=== PATIENT | male | born 1995 | race Caucasian/White ===

== ENCOUNTER 2016-11-12 09:21 | Emergency (ER) | payer OTHER ==
[~2016-11-12] VITALS: Ht 193 cm; Wt 82.0 kg
[~2016-11-12 09:21] MED LIST: MELATAB2 PO
[2016-11-12 09:25] VITALS: TEMP 36.6; Ht 193 cm; Wt 82.0 kg
[2016-11-12 09:35] VITALS: O2SAT 99
[2016-11-12] MEDS ORDERED: SODIUM CHLORIDE 0.9% 1000ML 1,000 ML IV STA (09:51)
[2016-11-12] MEDS ORDERED: LORAZEPAM 1 MG TAB SL STA (09:51)
[2016-11-12 10:03] LABS: BASO % 0.8 %; BASO ABS # 0.04 K/uL (0-0.2); COMPLETE YES; EOS % 1.3 %; HEMATOCRIT 45.2 % (42-52); IG% 0.2 %; LYMPH % 34.9 %; LYMPH ABS # 1.67 K/uL (1.2-3.4); MEAN CORPUSCULAR HEMOGLOBIN 30.1 pg (25-34); MEAN CORPUSCULAR HGB CONC 35.4 g/dl (32-36); MEAN PLATELET VOLUME 10.4 fL (7.4-10.4); MONO % 10.3 %; NEUT % 52.5 %; PLATELET COUNT 198 K/uL (130-400); RED BLOOD COUNT 5.32 M/uL (4.7-6.1); WHITE BLOOD COUNT 4.78 K/uL (4.8-10.8)
[2016-11-12 10:22] LABS: BUN/CREATININE RATIO 16.8 (10-20); CALCIUM 9.6 mg/dl (8.5-10.1); CREATININE 0.98 mg/dl (0.60-1.40); POTASSIUM 3.7 mmol/L (3.5-5.1)
[2016-11-12 10:28] LABS: CKMB/CK RATIO 0.7 (0-3.0)
--- NOTE | 2016-11-12 10:34 | DIAGNOSTIC IMAGING REPORT ---
TWO VIEW CHEST CLINICAL HISTORY: Atypical chest pain. FINDINGS: PA and lateral chest radiographs are obtained. No prior studies are available for comparison at the time of dictation. The cardiomediastinal silhouette is unremarkable. The lungs and pleural spaces are clear. There is no pneumothorax. The bony thorax appears intact. IMPRESSION: No active disease in the chest. Electronically signed by: Saurabh Terrell M.D. 11/12/2016 10:33 AM Dictated Date/Time: 11/12/2016 10:32 AM
[2016-11-12] MEDS ORDERED: ALUMINUM/MAGNESIUM SUSP 30 ML UDC PO STA (12:58)
[2016-11-12] MEDS ORDERED: LIDOCAINE HCL 2% VISC SOLN 20 ML UDC PO STA (12:58)
--- NOTE | 2016-11-12 13:09 | DIAGNOSTIC IMAGING REPORT ---
Right upper quadrant ultrasound GALLBLADDER-ABD LIMITED CLINICAL HISTORY: lower chest pain, SOB, Elevated bilirubin pain. Nausea. TECHNIQUE: Ultrasound COMPARISON STUDY: None FINDINGS: Normal liver. Gallbladder is normal. Gallbladder wall measures 2 mm. There is no abnormal pericholecystic fluid. Common bile that measures 3 mm. Pancreas and right kidney are unremarkable. IMPRESSION: Normal study Electronically signed by: Remy Shook M.D. 11/12/2016 1:07 PM Dictated Date/Time: 11/12/2016 1:06 PM
[2016-11-12 13:51] VITALS: BP 126/71; PULSE 66; O2SAT 99
--- NOTE | 2016-11-14 21:41 | EMERGENCY ROOM VISIT NOTE ---
ED Visit Note First contact with patient: 09:30 Chief Complaint: Trouble breathing and chest pain. History of Present Illness: Mr. Sanchez is a 21 year-old white male who ambulates into the ED complaining of shortness of breath and chest discomfort. Patient was referred to the ED by a local urgent care center for further evaluation and care. Historically patient reports no significant cardiac or pulmonary histories. Patient reports approximately 24 hours ago he awoke from sleep and felt short of breath. He reports since that time when he is walking or lying down he has increased short of breath. He has not identified any alleviating factors related to his shortness of breath. He has not taken any medications or therapies for his shortness of breath prior to arrival at the hospital. Associated with his shortness of breath he also reports he has some mild discomfort over the lower sternal area. He describes this as an achy sensation. He rates his discomfort 3/10. Pain is nonradiating. His pain worsens with palpation and increasing shortness of breath. He has not identified any alleviating factors related to this symptom. He has not taken any medications for this symptoms prior to arrival at the hospital. He does report on Saturday night he was drinking heavily but denies any trauma at that time. Patient denies fevers, chills, sweats, skin eruptions, skin color changes, upper respiratory tract symptoms, wheezing, cough, dependent edema, previous clots, claudication, cramping, recent surgery/inactivity/extended travel, abdominal pain, nausea, vomiting, diarrhea, constipation, rectal bleeding, black /tarry stools, urinary symptoms, back/flank pain. Review of Systems: As noted above in history of present illness. All body systems were reviewed and found to be negative as noted above. Past Medical History: Unspecified knee surgery. Current Medications: Patient denies. Allergies to Medications: Patient denies. Social History: Patient is University student; he feels safe in his home environment; he denies tobacco use and admits to alcohol use. Physical Examination: Vital Signs: Date Time Temp Pulse Resp B/P Pulse Ox O2 Delivery O2 Flow Rate FiO2 11/12/16 13:51 66 16 126/71 99 11/12/16 13:15 71 11/12/16 12:19 72 16 115/61 100 Room Air 11/12/16 11:07 71 16 127/77 99 Room Air 11/12/16 09:36 86 11/12/16 09:35 99 Room Air 11/12/16 09:25 36.6 81 18 138/79 98 Room Air GENERAL: 21-year-old male in mild distress due to symptoms, nontoxic-appearing, afebrile and hemodynamically stable. NEUROLOGICAL: Awake, alert and oriented to person, place and time. Answering questions appropriately and following commands. Normal gait. Good hand eye coordination. Patient does appear moderately anxious as observed by facial reactions and body language. SKIN: Warm, dry and pink. No soft tissue eruptions or trauma noted. HEENT: Atraumatic and normocephalic. PERRLA. Sclera white and conjunctiva pink. Oral cavity moist and pink. Pharynx is nonerythematous or edematous. Speech normal. No lymphadenopathy. Trachea midline. No jugular venous distention. No carotid bruits. BACK: No tenderness over the bony spine. No CVA tenderness. THORAX: Lungs sounds are clear to auscultation and equal bilaterally with symmetrical chest wall. No wheezing, rales or rhonchi. No crepitus, tenderness , subcutaneous air or deformities noted. HEART: Regular rate and rhythm. No gallops, rubs or murmurs are appreciated. No lifts, heaves or thrills. PMI is not displaced. ABDOMEN: Flat and soft with moderate tenderness in the epigastric area. Positive bowel sounds in all quadrants. No guarding, rigidity or organomegaly. EXTREMITIES: Moves all extremities well on command and with purpose. All distal neurovascular statuses are intact and equal bilaterally. No dependent edema or calf tenderness/cords. ED Course: Patient is assessed as noted above. Old laboratory tests were reviewed from outside sources and showed: January 2015: elevated bilirubin of 1.5, AST of 51, ALT of 65, absolute lymphocytes 4852 and a positive Darleen-Casiano IgM. Laboratory Testing: Test 11/12/16 09:40 11/12/16 10:03 Range/Units White Blood Count 4.78 4.8-10.8 K/uL Red Blood Count 5.32 4.7-6.1 M/uL Hemoglobin 16.0 14.0-18.0 g/dL Hematocrit 45.2 42-52 % Mean Corpuscular Volume 85.0 80-100 fL Mean Corpuscular Hemoglobin 30.1 25-34 pg Mean Corpuscular Hemoglobin Concent 35.4 32-36 g/dl Platelet Count 198 130-400 K/uL Mean Platelet Volume 10.4 7.4-10.4 fL Neutrophils (%) (Auto) 52.5 % Lymphocytes (%) (Auto) 34.9 % Monocytes (%) (Auto) 10.3 % Eosinophils (%) (Auto) 1.3 % Basophils (%) (Auto) 0.8 % Neutrophils # (Auto) 2.51 1.4-6.5 K/uL Lymphocytes # (Auto) 1.67 1.2-3.4 K/uL Monocytes # (Auto) 0.49 0.11-0.59 K/uL Eosinophils # (Auto) 0.06 0-0.5 K/uL Basophils # (Auto) 0.04 0-0.2 K/uL RDW Standard Deviation 41.6 36.4-46.3 fL RDW Coefficient of Variation 13.5 11.5-14.5 % Immature Granulocyte % (Auto) 0.2 % Immature Granulocyte # (Auto) 0.01 0.00-0.02 K/uL D-Dimer < 190 0-500 ug/L FEU Sodium Level 139 136-145 mmol/L Potassium Level 3.7 3.5-5.1 mmol/L Chloride Level 104 98-107 mmol/L Carbon Dioxide Level 26 21-32 mmol/L Anion Gap 9.0 3-11 mmol/L Blood Urea Nitrogen 17 7-18 mg/dl Creatinine 0.98 0.60-1.40 mg/dl Est Creatinine Clear Calc Drug Dose 138.3 ml/min Estimated GFR () 127.2 Estimated GFR (Non- 109.8 BUN/Creatinine Ratio 16.8 10-20 Random Glucose 87 70-99 mg/dl Calcium Level 9.6 8.5-10.1 mg/dl Total Bilirubin 2.9 0.2-1 mg/dl Direct Bilirubin 0.3 0-0.2 mg/dl Aspartate Amino Transf (AST/SGOT) 18 15-37 U/L Alanine Aminotransferase (ALT/SGPT) 25 12-78 U/L Alkaline Phosphatase 66 45-117 U/L Total Creatine Kinase 183 39-308 U/L Creatine Kinase MB 1.2 0.5-3.6 ng/ml Creatine Kinase MB Ratio 0.7 0-3.0 Total Protein 8.0 6.4-8.2 gm/dl Albumin 4.6 3.4-5.0 gm/dl Lipase 128 73-393 U/L Bedside Troponin I 0.000 0-0.045 ng/ml Chest X-Rays: Were read by myself and the radiologist showing no acute infiltrates, effusions or pneumothorax. Normal heart silhouette and bony anatomy. No free air under the diaphragm. No previous to compare. EKG: Were read by myself and reviewed with Dr. Atkins; shows normal sinus rhythm with ventricular rate of 73 bpm. Normal axis, intervals and complexes. No acute ST changes indicating ischemia, injury or infarction. No previous to compare. Gallbladder Ultrasound: Was reviewed by myself and read by the radiologist and shows a normal-appearing liver, normal-appearing gallbladder with no wall thickening or abnormal pericolic stick fluid. Normal-appearing common bile duct measuring 3 mm and normal-appearing pancreas and right kidney. Patient was hydrated with normal saline and initially he received 1 mg of Ativan sublingually by mouth for his anxiety. On reevaluation he was much calmer and then received a GI cocktail by mouth. Patient was reassessed multiple times during his stay in the emergency department. Patient's case was reviewed with Dr. Atkins; we agreed on diagnostic approach, treatment, disposition and plan. At patient request I did review my history and physical examination with his mother. Patient was educated about tonight's findings and instructed on his treatment plan; he verbalizes understanding and agreement with this plan. Clinical Impression: Chest pain of uncertain etiology. Shortness of breath. Epigastric abdominal pain. Decision-Making: Initially my differential diagnosis I considered gastritis, gastric reflux, acute coronary syndrome, pulmonary embolism, pneumonia, thoracic aneurysm, anxiety and other causes. Disposition: Patient discharged home in stable condition; prior to departure he was reassessed and subjectively reported he was pain and symptom-free. This did occur shortly after he received his GI cocktail Plan: Patient was encouraged to use 650 mg of acetaminophen every 6 hours as needed for pain. Patient was encouraged to use 150 mg of Zantac 2 times a day. Patient was encouraged to avoid stomach irritants including alcohol. Patient was encouraged use bland diet for the next 48 hours. Patient was encouraged to follow-up at [facility] for recheck in one to 2 days. Patient was encouraged return the ED for worsening pain, worsening shortness of breath, fevers, vomiting or any new/concerning symptoms.
== END 2016-11-12 13:52 | disposition home or self-care (01) ==
LOC: C.EDB 09:23 → C.EDA 13:52
DX: R07.9 Chest pain, unspecified (principal); R10.13 Epigastric pain; R06.02 Shortness of breath

== ENCOUNTER 2017-03-02 23:15 | Emergency (ER) | payer OTHER ==
[~2017-03-02] VITALS: Ht 193 cm; Wt 82.1 kg
[2017-03-02 23:24] VITALS: TEMP 36.6; Ht 193 cm; Wt 82.1 kg
--- NOTE | 2017-03-03 01:01 | EMERGENCY ROOM VISIT NOTE ---
ED Visit Note First contact with patient: 23:30 CHIEF COMPLAINT: Head and neck injury this evening HISTORY OF PRESENT ILLNESS: Patient is an otherwise healthy 21-year-old white male who presents emergency department for evaluation of head and neck pain after an injury that occurred about 3 hours ago. He rolled into a 4 foot deep pool, striking the top of his head on the bottom of the pool. He did not lose consciousness. He was able to get himself out of the pool without difficulty and rested for a few minutes. He notes a mild frontal/bitemporal headache that he rates a 3/10. He complains more of pain in the lower cervical spine, that he rates an 8/10. He noted pain with movement of his neck, particularly rotation. He felt a little bit lightheaded. He denies any vision changes, nausea, vomiting, numbness, tingling or weakness into the upper extremities. No vision changes. He notes a slight abrasion on the top of his head where he struck the bottom of the pool. REVIEW OF SYSTEMS: Review of systems as per HPI. All other systems reviewed were negative. 10 systems reviewed. PMH: Electronic medical records are reviewed and summarized as above/below. See Problem List. SOCIAL HISTORY: Patient is a recent college graduate, who lives in an apartment with roommates. Nonsmoker. PHYSICAL EXAM: Vital Signs: Reviewed Nurse's notes. CONSTITUTIONAL: Patient is a well-appearing 21-year-old white male who is awake and alert and in no acute distress. HEENT: Superficial abrasion noted frontally, and the hairline. Pupils equal, round, reactive to light and accommodation. EOMs intact without nystagmus. Sclera are anicteric. Tympanic membranes intact, with normal landmarks. External canals are clear. No hemotympanum or Murphy sign. Oral and nasopharynx are clear. No CSF rhinorrhea. Mucous membranes are moist. NECK: Patient was placed in a cervical collar in triage. Anterior neck is supple, nontender, no lymphadenopathy. Collar was opened it, and patient posterior cervical spine was palpated. There is pain to palpation over the spinous processes of the inferior cervical spine. There is no paraspinous muscle tenderness. No obvious step-off deformity. HEART: Regular rate and rhythm, with normal S1 and S2, no murmur or gallop or rub is heard. LUNGS: Breath sounds equal and clear to auscultation without wheezes, rales, or rhonchi heard. SKIN: No lesions or rash, normal skin turgor. EXTREMITIES: No cyanosis, edema, joint tenderness or swelling. No deformity. NEUROLOGICAL: Alert and oriented x4. Cranial nerves 2 through 12, sensation and strength grossly intact. Upper extremity DTRs are equal and symmetrical bilaterally. Mini-Mental status exam is unremarkable. ED course: The patient was seen and evaluated as above. He declined any medication needs. Head and cervical spine CT scans were obtained. Per statrad , there was no evidence for acute intracranial bleed, mass or mass effect, no skull fracture. No acute cervical spine fractures or malalignment or prevertebral soft tissue swelling. The patient was reassessed. The cervical collar was removed. He had full cervical spine range of motion, minimal stiffness and discomfort however. He remained neurovascularly intact. Conservative care measures were discussed with the patient. He declined prescription analgesia. Differential diagnoses include acute intracranial bleed, skull fracture, concussion, cervical spine fracture, unstable ligamentous injury, among others. Problem List Medical Problems: (1) Anxiety Status: Resolved (2) Chest pain of uncertain etiology Status: Resolved (3) Stress Status: Resolved Current/Historical Medications No Active Prescriptions or Reported Meds Allergies Coded Allergies: No Known Allergies (Unverified , 03/02/17) Vital Signs Date Time Temp Pulse Resp B/P (MAP) Pulse Ox O2 Delivery O2 Flow Rate FiO2 03/03/17 00:54 64 18 132/72 96 Room Air 03/02/17 23:24 36.6 86 18 138/84 96 Room Air Departure Information Impression Primary Impression: Cervical strain Additional Impression: Head contusion Prescriptions No Active Prescriptions or Reported Meds Referrals No Doctor, Assigned (PCP) Patient Instructions [facility] Additional Instructions Ibuprofen(Motrin, Advil) may be used for fever or pain. Use 600mg every six hours as needed. Take with food. Avoid using more than 2400mg in a 24 hour period. Do not use 2400mg per day for more than three consecutive days without physician direction. Prolonged inappropriate use can lead to stomach upset or ulcers. This medication can be taken if you need to drive, work, or perform activities which may be dangerous when taking narcotic pain medication. (AND/OR) Acetaminophen(Tylenol) may be used for fever or pain. Use 1000mg every six hours as needed. Avoid using more than 3000mg in a 24 hour period. This medication can be taken if you need to drive, work, or perform activities which may be dangerous when taking narcotic pain medication. Rest and avoid heavy lifting until your symptoms resolve and then gradually return to full activity. A good rule of thumb is if it hurts your neck to perform a certain activity, then it should be avoided until you are healthy again. A heating pad, warm compresses, or a hot shower may help with tight muscles and can be done several times a day as needed. Continue current medications. Return to the ER immediately for any numbness, tingling, severe pain, weakness in her upper extremities, severe headache, vomiting, or as needed. Follow up with your primary care physician within 3-5 days for a recheck of your current condition. Problem Qualifiers
[2017-03-03 01:06] VITALS: BP 132/72; PULSE 64; O2SAT 96
--- NOTE | 2017-03-03 07:20 | DIAGNOSTIC IMAGING REPORT ---
HEAD CT NONCONTRAST CT DOSE: HISTORY: Head injury. EVAL TRAUMA TECHNIQUE: Multiaxial CT images of the head were performed without the use of intravenous contrast. Automated exposure control was utilized for this study. Comparison: None. Findings: The paranasal sinuses and mastoid air cells are clear. The calvarium and skull base are intact. The ventricles and sulci are within normal limits. There is no mass, hematoma, midline shift, or acute infarct. Impression: No acute intracranial abnormality. Electronically signed by: Willian Murray M.D. 03/03/2017 7:19 AM Dictated Date/Time: 03/03/2017 7:16 AM
--- NOTE | 2017-03-03 07:23 | DIAGNOSTIC IMAGING REPORT ---
CERVICAL SPINE CT CT DOSE: 1062.68 mGy.cm HISTORY: Neck pain. EVAL TRAUMA TECHNIQUE: Multiaxial CT images of the cervical spine were performed and reformatted in the sagittal and coronal plane without the use of contrast. COMPARISON: None. FINDINGS: No fractures. No subluxation. Prevertebral soft tissues and the C1-C2 interval are intact. No pneumothorax. IMPRESSION: No fractures within the cervical spine. Electronically signed by: Willian Murray M.D. 03/03/2017 7:22 AM Dictated Date/Time: 03/03/2017 7:19 AM
== END 2017-03-03 01:08 | disposition home or self-care (01) ==
LOC: C.EDB 23:16 → C.EDA 03-03 01:08
DX: S16.1XXA Strain of muscle, fascia and tendon at neck level, initial encounter (principal); S00.83XA Contusion of other part of head, initial encounter; W16.522A Jumping or diving into swimming pool striking bottom causing other injury, initial encounter; Y93.11 Activity, swimming